=== PATIENT | female | born 1990 | race Caucasian/White ===

== ENCOUNTER 2018-12-25 10:01 | Emergency (ER) | payer OTHER ==
[~2018-12-25] VITALS: Ht 177.8 cm; Wt 88.6 kg
[2018-12-25] MEDS ORDERED: normal saline 1000ml 1,000 ML IV ONE (10:30)
[2018-12-25] MEDS ORDERED: ondansetron/PF 4mg/2ml inj IV ONE (10:30)
[2018-12-25 10:33] LABS: BASOPHILS % (AUTO) 0.2 % (0-1); EOSINOPHILS % (AUTO) 0.1 % (0-6); HEMATOCRIT 46.1 % (35.0-45.0); HEMOGLOBIN 16.1 g/dl (12.0-16.0); LYMPHOCYTES # (AUTO) 0.3 X10'3 (1.1-4.8); LYMPHOCYTES % (AUTO) 3.2 % (21-51); MEAN CORPUSCULAR HEMOGLOBIN 34.2 PG (27.0-31.0); MEAN CORPUSCULAR VOLUME 97.6 FL (78-98); MEAN PLATELET VOLUME 9.2 FL (7.4-10.4); MONOCYTES # (AUTO) 0.4 X10'3 (0-0.9); NEUTROPHILS # (AUTO) 9.7 X10'3 (1.8-7.7); NEUTROPHILS % (AUTO) 92.5 % (42-75); PLATELET COUNT 165 X10'3 (140-440); RED BLOOD COUNT 4.72 X10'6 (4.20-5.60); RED CELL DISTRIBUTION WIDTH 12.5 % (11.5-14.5); WHITE BLOOD COUNT 10.5 X10'3 (4.5-11.0)
[2018-12-25 10:56] LABS: ALANINE AMINOTRANSFERASE 27 U/L (12-78); ALBUMIN 3.6 G/DL (3.4-5.0); ALBUMIN/GLOBULIN RATIO 0.9 (1.1-1.5); ALKALINE PHOSPHATASE 61 IU/L (46-116); ANION GAP 13 (8-16); ASPARTATE AMINO TRANSFERASE 15 U/L (10-37); BILIRUBIN,TOTAL 0.5 MG/DL (0.1-1.0); BLOOD UREA NITROGEN 14 MG/DL (7-18); BUN/CREATININE RATIO 15.6 (6.6-38.0); CALCIUM 8.6 MG/DL (8.5-10.1); CHLORIDE 106 MMOL/L (99-107); GLUCOSE 127 MG/DL (70-104); POTASSIUM 3.7 MMOL/L (3.5-5.1); SODIUM 142 MMOL/L (135-145); TOTAL CARBON DIOXIDE 23.4 MMOL/L (24-32); TOTAL PROTEIN 7.6 G/DL (6.4-8.2); eGFR 74 ML/MIN
[2018-12-25] MEDS ORDERED: morphine 4 MG/ML inj SYRINge IV PRN (11:00)
[2018-12-25] MEDS ORDERED: normal saline 1000ML IV soln IVB ONE (11:00)
[2018-12-25] MEDS ORDERED: proCHLORperazine 10 MG/2 ml inj IV ONE (11:00)
[2018-12-25 11:19] LABS: LIPASE 71 U/L (73-393)
[2018-12-25 11:42] LABS: CLARITY,URINE SLIGHTLY CLOUDY (Clear); COLOR,URINE YELLOW (Yellow); GLUCOSE, URINE NEGATIVE (Neg); KETONES,URINE NEGATIVE (Neg); LEUKOCYTE ESTERASE ,URINE NEGATIVE (Neg); NITRITES, URINE NEGATIVE (Neg); OCCULT BLOOD,URINE NEGATIVE (Neg); PH,URINE 5.5 (4.8-8.0); PROTEIN,URINE NEGATIVE (Neg); URINE HCG NEGATIVE (NEG); UROBILINOGEN,URINE 0.2 E.U/dL (0.2-1.0)
[2018-12-25 11:53] LABS: UA COLLECTION TYPE CLN CATCH MIDSTREAM
--- NOTE | 2018-12-25 11:54 | NUR ---
relieving RN for lunch, pt is sleeping on gurney, resp even and unlabored, friend at bedside, NS bolus infusing w/o
[2018-12-25 12:00] LABS: SQUAMOUS EPITHELIAL CELL,UR MODERATE /LPF (FEW)
[2018-12-25 12:01] LABS: MUCUS STRANDS MODERATE /LPF (Neg); WBC,URINE 0-4 /HPF (0-4)
[2018-12-25 12:02] LABS: BACTERIA,URINE 1+ /HPF (Neg); RBC,URINE 0-2 /HPF (0-2)
[2018-12-25] MEDS ORDERED: ONDA4TAB12 PO (12:06)
[2018-12-25 12:27] VITALS: BP 113/73
== END 2018-12-25 12:25 | disposition home or self-care (01) ==
LOC: ER 10:02
DX: E86.0 Dehydration (principal); R19.7 Diarrhea, unspecified; R11.2 Nausea with vomiting, unspecified; Z88.1 Allergy status to other antibiotic agents
CPT/HCPCS: 36415; 80053; 81001; 81025; 83690; 85025; 85610; 96361; 96374; 96375; 99283; J0780; J2270; J2405; J7030

== ENCOUNTER 2019-06-12 11:55 | Outpatient (CLI) | payer OTHER ==
[~2019-06-12 11:55] MED LIST: ONDA4TAB12 PO
[2019-06-12 12:37] LABS: BASOPHILS # (AUTO) 0.1 X10'3 (0-0.2); BASOPHILS % (AUTO) 1.2 % (0-1); EOSINOPHILS # (AUTO) 0.1 X10'3 (0-0.9); EOSINOPHILS % (AUTO) 1.8 % (0-6); HEMATOCRIT 45.1 % (35.0-45.0); HEMOGLOBIN 15.7 g/dl (12.0-16.0); LYMPHOCYTES # (AUTO) 1.8 X10'3 (1.1-4.8); LYMPHOCYTES % (AUTO) 27.9 % (21-51); MEAN CORPUSCULAR HEMOGLOBIN 34.1 PG (27.0-31.0); MEAN CORPUSCULAR HGB CONC 34.7 g/dL (33.0-36.5); MEAN CORPUSCULAR VOLUME 98.3 FL (78-98); MEAN PLATELET VOLUME 9.8 FL (7.4-10.4); MONOCYTES # (AUTO) 0.6 X10'3 (0-0.9); MONOCYTES % (AUTO) 9.4 % (2-12); NEUTROPHILS % (AUTO) 59.7 % (42-75); PLATELET COUNT 208 X10'3 (140-440); RED BLOOD COUNT 4.59 X10'6 (4.20-5.60); RED CELL DISTRIBUTION WIDTH 12.4 % (11.5-14.5); WHITE BLOOD COUNT 6.6 X10'3 (4.5-11.0)
== END 2019-06-12 23:59 | disposition home or self-care (01) ==
LOC: VAS 11:55
PROVIDERS: ATTEND Family Medicine
DX: I07.1 Rheumatic tricuspid insufficiency (principal); I65.23 Occlusion and stenosis of bilateral carotid arteries
CPT/HCPCS: 36415; 85025; 93306; 93880

== ENCOUNTER 2019-10-08 07:44 | Outpatient (CLI) | payer OTHER ==
[2019-10-08] VITALS (17 sets, daily range): BP systolic 124–145; BP diastolic 75–103
== END 2019-10-08 23:59 | disposition home or self-care (01) ==
LOC: CARD DIAG 07:44
PROVIDERS: ATTEND Internal Medicine Interventional Cardiology
DX: R55 Syncope and collapse (principal); R42 Dizziness and giddiness
CPT/HCPCS: 93660

== ENCOUNTER 2019-10-18 17:52 | Emergency (ER) | payer OTHER ==
[~2019-10-18] VITALS: Ht 177.8 cm; Wt 89.5 kg
[2019-10-18 18:41] VITALS: BP 124/78
== END 2019-10-18 19:29 | disposition home or self-care (01) ==
LOC: ER 17:52
DX: Z77.21 Contact with and (suspected) exposure to potentially hazardous body fluids (principal); R11.2 Nausea with vomiting, unspecified; Z72.89 Other problems related to lifestyle; Z88.8 Allergy status to other drugs, medicaments and biological substances; Z79.899 Other long term (current) drug therapy
CPT/HCPCS: 99283

== ENCOUNTER 2019-11-05 11:53 | Emergency (ER) | payer OTHER ==
[~2019-11-05] VITALS: Ht 177.8 cm; Wt 91.7 kg
[2019-11-05] MEDS ORDERED: LIDOcaine 5% patch TP STA (13:33)
[2019-11-05] MEDS ORDERED: ketorolac trometh. 30mg/ml inj. IM ONE (13:35)
[2019-11-05 13:50] VITALS: BP 120/89
== END 2019-11-05 13:52 | disposition home or self-care (01) ==
LOC: ER 11:54
DX: M54.5 Low back pain (principal); Z72.89 Other problems related to lifestyle; Z88.1 Allergy status to other antibiotic agents; Z79.899 Other long term (current) drug therapy
CPT/HCPCS: 96372; 99283; J1885

== ENCOUNTER 2020-10-14 16:09 | Emergency (ER) | payer BC, OTHER ==
[~2020-10-14] VITALS: Ht 175.3 cm; Wt 90.9 kg
[2020-10-14 16:49] VITALS: BP 157/94
== END 2020-10-14 17:30 | disposition home or self-care (01) ==
LOC: ER 16:10
DX: S93.402A Sprain of unspecified ligament of left ankle, initial encounter (principal); M25.572 Pain in left ankle and joints of left foot; Z72.89 Other problems related to lifestyle; Z88.1 Allergy status to other antibiotic agents; Z79.899 Other long term (current) drug therapy; X58.XXXA Exposure to other specified factors, initial encounter; Y93.01 Activity, walking, marching and hiking; Y92.89 Other specified places as the place of occurrence of the external cause; Y99.8 Other external cause status
CPT/HCPCS: 73610; 99283

== ENCOUNTER 2020-12-07 14:55 | Outpatient (CLI) | payer BC | END 2020-12-07 23:59 | disposition home or self-care (01) | LOC: RAD 14:55 | PROVIDERS: ATTEND Family Medicine | DX: M25.472 Effusion, left ankle (principal); M79.89 Other specified soft tissue disorders; M21.6X2 Other acquired deformities of left foot | CPT/HCPCS: 73610 ==

== ENCOUNTER 2020-12-10 10:36 | Outpatient (CLI) | payer BC | END 2020-12-10 23:59 | disposition home or self-care (01) | LOC: RAD 10:36 | PROVIDERS: ATTEND Family Medicine | DX: S93.422A Sprain of deltoid ligament of left ankle, initial encounter (principal); M65.872 Other synovitis and tenosynovitis, left ankle and foot; M21.6X2 Other acquired deformities of left foot; R60.9 Edema, unspecified; M25.472 Effusion, left ankle; X58.XXXA Exposure to other specified factors, initial encounter; Y93.89 Activity, other specified; Y92.89 Other specified places as the place of occurrence of the external cause; Y99.8 Other external cause status | CPT/HCPCS: 73721 ==

== ENCOUNTER 2021-03-23 07:31 | Outpatient (CLI) | payer BC ==
[2021-03-23 08:14] LABS: BASOPHILS # (AUTO) 0.1 X10'3 (0-0.2); EOSINOPHILS # (AUTO) 0.1 X10'3 (0-0.9); EOSINOPHILS % (AUTO) 1.4 % (0-6); HEMATOCRIT 45.6 % (35.0-45.0); LYMPHOCYTES # (AUTO) 1.9 X10'3 (1.1-4.8); LYMPHOCYTES % (AUTO) 29.5 % (21-51); MEAN CORPUSCULAR HEMOGLOBIN 34.5 PG (27.0-31.0); MEAN CORPUSCULAR VOLUME 98.6 FL (78-98); MEAN PLATELET VOLUME 9.7 FL (7.4-10.4); MONOCYTES # (AUTO) 0.5 X10'3 (0-0.9); MONOCYTES % (AUTO) 8.3 % (2-12); NEUTROPHILS # (AUTO) 3.8 X10'3 (1.8-7.7); NEUTROPHILS % (AUTO) 59.8 % (42-75); PLATELET COUNT 259 X10'3 (140-440); RED BLOOD COUNT 4.62 X10'6 (4.20-5.60); RED CELL DISTRIBUTION WIDTH 12.5 % (11.5-14.5); WHITE BLOOD COUNT 6.4 X10'3 (4.5-11.0)
[2021-03-23 08:15] LABS: CLARITY,URINE CLOUDY (Clear); GLUCOSE, URINE NEGATIVE (Neg); KETONES,URINE TRACE mg/dl (Neg); LEUKOCYTE ESTERASE ,URINE NEGATIVE (Neg); NITRITES, URINE NEGATIVE (Neg); OCCULT BLOOD,URINE NEGATIVE (Neg); PH,URINE 5.5 (4.8-8.0); PROTEIN,URINE NEGATIVE (Neg); UROBILINOGEN,URINE 0.2 E.U/dL (0.2-1.0)
[2021-03-23 08:33] LABS: ALANINE AMINOTRANSFERASE 26 U/L (12-78); ALBUMIN 3.8 G/DL (3.4-5.0); ALKALINE PHOSPHATASE 66 IU/L (46-116); ASPARTATE AMINO TRANSFERASE 11 U/L (10-37); BILIRUBIN,TOTAL 0.5 MG/DL (0.1-1.0); BLOOD UREA NITROGEN 13 MG/DL (7-18); BUN/CREATININE RATIO 13.4 (6.6-38.0); CALCIUM 8.9 MG/DL (8.5-10.1); CHOL/HDL RATIO 4.7 (0.00-4.99); CHOLESTEROL 160 MG/DL (0-200); CREATININE 0.97 MG/DL (0.40-0.90); GLUCOSE 100 MG/DL (70-104); HDL CHOLESTEROL 34 MG/DL (35-60); LDL CHOLESTEROL 103 MG/DL (50-100); TOTAL CARBON DIOXIDE 25.6 MMOL/L (24-32); TOTAL PROTEIN 7.8 G/DL (6.4-8.2); TRIGLYCERIDES 161 MG/DL (20-135); eGFR 66 ML/MIN
[2021-03-23 08:38] LABS: UA COLLECTION TYPE CLN CATCH MIDSTREAM
[2021-03-23 08:39] LABS: COLOR,URINE DARK YELLOW (Yellow)
[2021-03-23 08:40] LABS: BACTERIA,URINE 2+ /HPF (Neg); MUCUS STRANDS MANY /LPF (Neg); RBC,URINE NONE SEEN /HPF (0-2); SQUAMOUS EPITHELIAL CELL,UR MANY /LPF (FEW); WBC,URINE 0-4 /HPF (0-4)
[2021-03-23 08:45] LABS: ANION GAP 10 (8-16); CHLORIDE 104 MMOL/L (99-107); POTASSIUM 3.9 MMOL/L (3.5-5.1); SODIUM 140 MMOL/L (135-145)
== END 2021-03-23 23:59 | disposition home or self-care (01) ==
LOC: LAB 07:31
PROVIDERS: ATTEND Family Medicine
DX: Z00.00 Encounter for general adult medical examination without abnormal findings (principal)
CPT/HCPCS: 36415; 80053; 80061; 81001; 84439; 84443; 85025

== ENCOUNTER 2021-05-04 10:45 | Outpatient (CLI) | payer BC | END 2021-05-04 23:59 | disposition home or self-care (01) | LOC: RAD 10:45 | PROVIDERS: ATTEND Registered Nurse | DX: S93.412A Sprain of calcaneofibular ligament of left ankle, initial encounter (principal); S93.492A Sprain of other ligament of left ankle, initial encounter; M21.42 Flat foot [pes planus] (acquired), left foot; R60.9 Edema, unspecified; M65.872 Other synovitis and tenosynovitis, left ankle and foot; X58.XXXA Exposure to other specified factors, initial encounter; Y93.89 Activity, other specified; Y92.89 Other specified places as the place of occurrence of the external cause; Y99.8 Other external cause status | CPT/HCPCS: 73721 ==

== ENCOUNTER 2021-07-02 10:54 | Day surgery (SDC) | payer BC ==
[2021-06-28 15:24] LABS: BASOPHILS # (AUTO) 0.1 X10'3 (0-0.2); BASOPHILS % (AUTO) 0.9 % (0-1); EOSINOPHILS # (AUTO) 0.1 X10'3 (0-0.9); EOSINOPHILS % (AUTO) 0.8 % (0-6); LYMPHOCYTES # (AUTO) 1.6 X10'3 (1.1-4.8); LYMPHOCYTES % (AUTO) 24.7 % (21-51); MEAN CORPUSCULAR HEMOGLOBIN 34.1 PG (27.0-31.0); MEAN CORPUSCULAR HGB CONC 34.1 g/dL (33.0-36.5); MEAN PLATELET VOLUME 9.4 FL (7.4-10.4); MONOCYTES # (AUTO) 0.6 X10'3 (0-0.9); MONOCYTES % (AUTO) 8.7 % (2-12); NEUTROPHILS # (AUTO) 4.2 X10'3 (1.8-7.7); NEUTROPHILS % (AUTO) 64.9 % (42-75); PRE OP HEMATOCRIT 44.4 % (35.0-45.0); PRE OP HEMOGLOBIN 15.1 g/dL (12.0-16.0); PRE OP PLATELET COUNT 216 X10'3 (140-440); RED BLOOD COUNT 4.43 X10'6 (4.20-5.60); RED CELL DISTRIBUTION WIDTH 12.9 % (11.5-14.5)
[2021-06-28 15:28] LABS: CLARITY,URINE CLEAR (Clear); COLOR,URINE YELLOW (Yellow); GLUCOSE, URINE NEGATIVE (Neg); KETONES,URINE NEGATIVE (Neg); LEUKOCYTE ESTERASE ,URINE NEGATIVE (Neg); NITRITES, URINE NEGATIVE (Neg); OCCULT BLOOD,URINE NEGATIVE (Neg); PROTEIN,URINE NEGATIVE (Neg); UA COLLECTION TYPE CLN CATCH MIDSTREAM; UROBILINOGEN,URINE 0.2 E.U/dL (0.2-1.0)
[2021-06-28 15:42] LABS: ALBUMIN 3.7 G/DL (3.4-5.0); ALBUMIN/GLOBULIN RATIO 0.9 (1.1-1.5); ALKALINE PHOSPHATASE 65 IU/L (46-116); BLOOD UREA NITROGEN 15 MG/DL (7-18); BUN/CREATININE RATIO 18.8 (6.6-38.0); CALCIUM 8.9 MG/DL (8.5-10.1); CHLORIDE 105 MMOL/L (99-107); PRE OP ALT 25 U/L (30-65); PRE OP ANION GAP 11 (8-16); PRE OP AST 14 U/L (10-37); PRE OP BILIRUB, TOTAL 0.3 MG/DL (0.0-1.0); PRE OP GLUCOSE 101 MG/DL (70-104); PRE OP POTASSIUM 3.8 MMOL/L (3.4-5.1); PRE OP SODIUM 141 MMOL/L (135-145); TOTAL CARBON DIOXIDE 24.6 MMOL/L (24-32); TOTAL PROTEIN 7.8 G/DL (6.4-8.2); eGFR 83 ML/MIN
[2021-06-28 15:50] LABS: HCG SERUM QL NEGATIVE
[2021-07-02] VITALS (8 sets, daily range): BP systolic 126–138; BP diastolic 79–96
[~2021-07-02] VITALS: Ht 175.3 cm; Wt 92.3 kg
[~2021-07-02 10:54] MED LIST changes: +FEXO-271 PO; +FLUTICASONE INH; -ONDA4TAB12 PO; +ZOLP5TAB8 PO; +cefazolin/dext.iso 2gm/50ml IV ONE; +famotidine 20mg tablet PO ONE; +ringers solution, lacted 1,000 ML IV SCH
[2021-07-02] MEDS ORDERED: aprepitant 40mg capsule PO ONE (13:35)
[2021-07-02] MEDS ORDERED: cloNIDine hcl/PF 100mcg/ml inj ONE (13:39)
[2021-07-02] MEDS ORDERED: MIDAZolam 1 MG/ML 5ML VIAL ONE (13:41)
[2021-07-02] MEDS ORDERED: FENTANYL CITRATE/PF 50 MCG/1 ML VIAL ONE (13:41)
[2021-07-02] MEDS ORDERED: LIDOcaine 1%/PF 5ML 10 MG/ML VIAL ONE (13:43)
[2021-07-02] MEDS ORDERED: sevoflurane 250ml liquid IH ONE (13:43)
[2021-07-02] MEDS ORDERED: BUPIVAcaine/PF 7.5mg/ml (0.75%) 10ml vial ONE (13:46)
[2021-07-02] MEDS ORDERED: propofol inj 20 ML IV ONE (13:50)
[2021-07-02] MEDS ORDERED: ROPIVAcaine 0.5% (5mg/ml) 30ml vial ONE (14:48)
[2021-07-02] MEDS ORDERED: ondansetron/PF 4mg/2ml inj ONE (14:48)
[2021-07-02] MEDS ORDERED: dexamethasone sod phosphate 4mg/ml inj. ONE (14:48)
[2021-07-02] MEDS ORDERED: morphine 4 MG/ML inj SYRINge IV PRN (15:10)
[2021-07-02] MEDS ORDERED: ROPIVAcaine 0.2% (10 MG/5 ML) BOLUS INJECTION POPLITEAL PRN (15:10)
[2021-07-02] MEDS ORDERED: proCHLORperazine 10 MG/2 ml inj IV PRN (15:10)
[2021-07-02] MEDS ORDERED: morphine 2 MG/ML inj. syringe IV PRN (15:10)
[2021-07-02] MEDS ORDERED: ondansetron/PF 4mg/2ml inj IV PRN (15:10)
[2021-07-02] MEDS ORDERED: meperidine/PF 25mg/ml syringe IV PRN ×3 (15:10)
[2021-07-02] MEDS ORDERED: ringers solution, lacted 1,000 ML IV SCH (15:10)
[2021-07-02] MEDS ORDERED: ROPIVAcaine 0.2%/PF PUMP/bolus 545 ML POPLITEAL SCH (15:10)
[2021-07-02] MEDS ORDERED: bacitracin 15gm ointment TP ONE (15:26)
--- NOTE | 2021-07-02 15:46 | NUR ---
Received from OR via [facility] , accompanied by Anesthesiologist ROB and report given by Anesthesiolgist. PATIENT WITH 20G PIV IN LEFT UE RUNNING LR AT 100. PATIENT WITH NERVE BLOCK SITE TO LEFT THIGH AREA. VSS. PATIENT WITH + CAP REFLL AND TOES ARE ALL PWD. DENIES PAIN AT THIS TIME. Addendum: 07/02/21 at 1554 by Eleno Meyers RN, RN Amended: Links added.
--- NOTE | 2021-07-02 16:46 | NUR ---
ALL DC CRITERIA FOR TRANSFER HOME HAS BEEN MET. VSS. DENIES PAIN PATIENT NERVE BLOCK INTACT AND EDUCATION ON ON Q GIVEN IN WRITTEN LITERATURE AND VERBAL EXPLANATION. PATIENT DRESSED BY MOTHER AND TAKEN OUT VIA WHEELCHAIR TO PERSONAL VEHICLE. PATIENT ABLE TO SAFELY TRANSFER FROM WHEELCHAIR TO VEHICLE WHILE MAINTAINING NWB STATUS. IV OUT WITHOUT COMPLICATION. Addendum: 07/02/21 at 1706 by Eleno Meyers RN, RN Amended: Links added.
== END 2021-07-02 16:46 | disposition home or self-care (01) ==
LOC: PAS 10:54
PROVIDERS: ATTEND Podiatrist Foot & Ankle Surgery
DX: M65.872 Other synovitis and tenosynovitis, left ankle and foot (principal); M25.372 Other instability, left ankle; S93.492A Sprain of other ligament of left ankle, initial encounter; G89.18 Other acute postprocedural pain; Z88.8 Allergy status to other drugs, medicaments and biological substances; Z88.1 Allergy status to other antibiotic agents; Z79.899 Other long term (current) drug therapy; Z20.822 Contact with and (suspected) exposure to COVID-19; X58.XXXA Exposure to other specified factors, initial encounter; Y93.89 Activity, other specified; Y92.89 Other specified places as the place of occurrence of the external cause; Y99.8 Other external cause status
CPT/HCPCS: 27695; 29898; 36415; 64446; 64447; 76942; 80053; 81003; 82948; 84703; 85025; A6222; C1713; J0690; J0735; J1100; J2250; J2405; J2704; J2795; J3010; J3490; J7120; J8501; U0003; U0005; Z7506; Z7508; Z7512; A4618; A6449; A7000

== ENCOUNTER 2023-05-15 08:16 | Emergency (ER) | payer SELFPAY ==
[~2023-05-15 08:16] MED LIST changes: -cefazolin/dext.iso 2gm/50ml IV ONE; -famotidine 20mg tablet PO ONE; -ringers solution, lacted 1,000 ML IV SCH
== END 2023-05-15 10:12 | disposition left against medical advice (07) ==
LOC: ER 08:16
DX: Z04.2 Encounter for examination and observation following work accident (principal); Z53.21 Procedure and treatment not carried out due to patient leaving prior to being seen by health care provider

== ENCOUNTER 2023-08-21 11:17 | Outpatient (CLI) | payer MEDICAID | END 2023-08-21 23:59 | disposition home or self-care (01) | LOC: MRI 11:17 | PROVIDERS: ATTEND Family Medicine | DX: S99.912A Unspecified injury of left ankle, initial encounter (principal); M77.52 Other enthesopathy of left foot and ankle; G90.522 Complex regional pain syndrome I of left lower limb; Z98.890 Other specified postprocedural states; M89.9 Disorder of bone, unspecified; M65.872 Other synovitis and tenosynovitis, left ankle and foot; X58.XXXA Exposure to other specified factors, initial encounter; Y93.89 Activity, other specified; Y92.89 Other specified places as the place of occurrence of the external cause; Y99.8 Other external cause status | CPT/HCPCS: 73721 ==

== ENCOUNTER 2024-05-21 18:20 | Emergency (ER) | payer MEDICAID, OTHER ==
[~2024-05-21] VITALS: Ht 175.3 cm; Wt 75.0 kg
[2024-05-21 18:42] VITALS: BP 127/77; PULSE 80; RESP 16; TEMP 98.3; O2SAT 99
[2024-05-21] MEDS ORDERED: CIPR2.5D21 RIGHTEYE (19:07)
== END 2024-05-21 20:29 | disposition home or self-care (01) ==
LOC: EEVIPCON 18:21 → ER 18:21
DX: H10.9 Unspecified conjunctivitis (principal); Z88.0 Allergy status to penicillin
CPT/HCPCS: 99283

== ENCOUNTER 2025-01-15 12:41 | Emergency (ER) | payer OTHER ==
[~2025-01-15] VITALS: Ht 175.3 cm; Wt 77.3 kg
[~2025-01-15 12:41] MED LIST changes: -FEXO-271 PO; +FEXO-404 PO
[2025-01-15 12:47] VITALS: BP 117/73; PULSE 82; RESP 18; O2SAT 97
--- NOTE | 2025-01-15 13:12 | Physician Documentation ---
History of Present Illness ~ Chief Complaint: Body Fluid Exposure Stated Complaint: EXPOSURE Time Seen by MD: 13:01 Primary Medical Doctor: [facility] Female was at work when she was exposed to ventilator aspirate from a patient who was admitted and intubated. Denies any acute symptoms. Requesting evaluation for body fluid exposure Day of Onset: Jan 15, 2025 Tetanus within 5 Years?: Yes Medication Reconciliation Allergies: Coded Allergies: amoxicillin (Verified Allergy, Intermediate, HIVES, 01/15/25) Scheduled Fexofenadine Hcl* (Na*), 1 TABLET PO DAILY, (Reported) [Fluticason Otc], 2 SPRAYS INH DAILY, (Reported) Scheduled PRN Zolpidem Tartrate* (Ambien*), 10 MG PO HS PRN for INSOMNIA, (Reported) Past Medical History Past Medical History: No Pertinent History Past Surgical History: noncontributory Smoking Status: Never smoker Alcohol Use: Occasionally Drug Use: none Lives In: Home Occupation: employed Review of Systems All Other Systems at this time: Reviewed and Negative ROS As stated above in the HPI, otherwise all systems are reviewed and negative. Physical Exam Vital Signs: Temperature: 98.1, Source: Oral, Heart Rate: 82, Respiratory Rate: 18, BP: 117/73, Pulse Oximetry: 97, Weight: 77.270 Physical Exam General: Alert, no apparent distress. Respiratory: Lungs clear, no respiratory distress. Neurologic: Oriented x4. Psychiatric: Normal mood and affect. Skin: Normal color, warm and dry. No edema, no ecchymosis. Progress Results/Orders Results/Orders Vital Signs 01/15/25 01/15/25 12:47 13:42 Temp 98.1 98.1 Pulse 82 Resp 18 B/P (MAP) 117/73 Pulse Ox 97 Medical Decision Making Findings Follow up accordingly with occupational health and have appropriate labs drawn. Differential Dx:Considerations: Include: Abrasion, Body Fluid Exposure, Contusion, Infectious disease expos., Laceration, Puncture wound, Other Departure Disposition: 01 HOME / SELF CARE / HOMELESS Impression: Primary Impression: Exposure to body fluid Condition: Stable Discharge Instructions: Body Fluid Exposure Referrals: NO PRIMARY CARE PROVIDER (PCP) Signature Scribe Signature: h Attestation: Scribed for Armando Davis Thermometer Maker by Armando Meyers NP . 01/15/25 17:03 ARMANDO DAVIS NP Jan 15, 2025 13:12
[2025-01-15 13:42] VITALS: TEMP 98.1
== END 2025-01-15 13:43 | disposition home or self-care (01) ==
LOC: ER 12:41
DX: Z77.21 Contact with and (suspected) exposure to potentially hazardous body fluids (principal); Z88.1 Allergy status to other antibiotic agents; Z79.899 Other long term (current) drug therapy; Z72.89 Other problems related to lifestyle
CPT/HCPCS: 99282